=== PATIENT | male | born 1990 | race Caucasian/White ===

== ENCOUNTER 2024-12-23 09:41 | Emergency (ER) | payer MEDICAID ==
[~2024-12-23] VITALS: Ht 167.6 cm; Wt 69.0 kg
[2024-12-23 09:45] VITALS: TEMP 37.2; O2SAT 99
[2024-12-23] MEDS ORDERED: LACTATED RINGERS 1,000 ML IV SCH (10:00)
[2024-12-23 10:29] LABS: BASOPHILS % 0.7 % (0.0-2.0); EOSINOPHILS % 1.6 % (0.0-5.0); HEMATOCRIT. 46.4 % (42.0-52.0); HEMOGLOBIN. 15.5 g/dL (14.0-18.0); LYMPHOCYTES % 25.8 % (20.0-50.0); MEAN CORPUSCULAR HEMOGLOBIN 30.8 pg (28.0-32.0); MEAN CORPUSCULAR HGB CONC 33.5 g/dL (31.0-37.0); MEAN CORPUSCULAR VOLUME 91.9 fL (80.0-94.0); MEAN PLATELET VOLUME 7.8 fl (7.4-10.4); MONOCYTES % 8.7 % (2.0-8.0); NEUTROPHILS % 63.2 % (40.0-76.0); PLATELET 289 x1000/uL (130-400); RED BLOOD CELL COUNT 5.05 mill/uL (4.7-6.1); RED CELL DISTRIBUTION WIDTH 14.1 % (11.6-14.6); WHITE BLOOD COUNT 9.6 x1000/uL (4.5-11.0)
[2024-12-23 10:36] LABS: CARBON DIOXIDE 28 mEq/L (21-32); CHLORIDE 102 mEq/L (98-107); POTASSIUM 3.9 mEq/L (3.5-5.1); SODIUM 141 mEq/L (136-145)
[2024-12-23 10:37] LABS: CALCIUM 10.3 mg/dL (8.7-10.4)
[2024-12-23 10:41] LABS: CREATININE 0.8 mg/dL (0.6-1.3)
[2024-12-23 10:42] LABS: GLUCOSE 89 mg/dL (70-105); UREA NITROGEN BLOOD 16 mg/dL (9-23)
[2024-12-23 10:43] LABS: ALANINE AMINOTRANSFERASE 78 IU/L (10-49); ALBUMIN 4.8 g/dL (3.2-4.8); ASPARTATE AMINOTRANSFERASE 44 IU/L (<34)
[2024-12-23 10:44] LABS: BILIRUBIN DIRECT 0.1 mg/dL (<=3.0); BILIRUBIN TOTAL 0.5 mg/dL (0.1-1.0)
[2024-12-23 10:45] LABS: TROPONIN I HIGH SENSITIVITY < 4 ng/L (3.0-53)
[2024-12-23] MEDS: FAMOTIDINE 20MG/2ML VIAL IV ONE (11:31)
[2024-12-23] MEDS: ONDANSETRON HCL 4MG/2ML INJ IV ONE (11:32)
[2024-12-23] MEDS: ACETAMINOPHEN 1000MG/100ML 100 ML IV ONE (11:32)
[2024-12-23] MEDS: METOCLOPRAMIDE HCL 10MG/2ML VIAL IV ONE (11:33)
[2024-12-23] MEDS: SODIUM CHLORIDE 0.9% 1,000 ML IV ONE (11:36)
[2024-12-23 13:00] VITALS: BP 120/70; PULSE 78; RESP 16; O2SAT 93
== END 2024-12-23 13:10 | disposition home or self-care (01) ==
LOC: ER 09:41
DX: R07.89 Other chest pain (principal); R10.13 Epigastric pain; E78.00 Pure hypercholesterolemia, unspecified; I10 Essential (primary) hypertension
CPT/HCPCS: 99285; 96365; 96375; 76705; 71045; 80076; 80048; 83690; 85025; 84484; 36415; 93005; J3490; J2765; J2405; J7030; J0131